=== PATIENT | female | born 1950 | race Caucasian/White ===

== ENCOUNTER → 2017-02-05 | Outpatient (CLI) | payer BC | END | disposition home or self-care (01) | LOC: C.RDSM 15:25 | PROVIDERS: ATTEND Physical Medicine & Rehabilitation Sports Medicine | DX: M17.11 Unilateral primary osteoarthritis, right knee (principal) ==

== ENCOUNTER → 2017-03-12 | Outpatient (CLI) | payer BC ==
[~2017-03-12] MED LIST: ASPI400T11; CHOL100041 PO; VITA1TAB4 PO
== END | disposition home or self-care (01) ==
LOC: C.RDSM 11:04
PROVIDERS: ATTEND Physical Medicine & Rehabilitation Sports Medicine
DX: G56.01 Carpal tunnel syndrome, right upper limb (principal)

== ENCOUNTER → 2017-03-27 | Day surgery (SDC) | payer BC ==
[2017-03-14 08:59] VITALS: Ht 160 cm; Wt 77.3 kg
[~2017-03-27] VITALS: Ht 160 cm; Wt 77.3 kg
[~2017-03-27] MED LIST changes: +ATROPINE SULFATE 0.1 MG/ML 5ML SYR IV PRN; +BUPIVACAINE 0.5 % 5 MG/1 ML PF 10ML VIAL ONE; +CEFAZOLIN 2000MG IV PUSH 10 ML IV SCH; +EpHEDrine SULFATE INJ 50 MG/ML AMP IV PRN; +FENTANYL CITRATE INJ 50 MCG/1 ML 2 ML VIAL IV PRN; +FENTANYL CITRATE INJ 50 MCG/1 ML 2 ML VIAL ONE; +LACTATED RINGER'S 1000ML 1,000 ML IV SCH; +LIDOCAINE HCL 2% 2 ML VIAL (20MG/ML) ONE; +LIDOCAINE HCL 2% LOCAL 20 ML VIAL ONE; +MIDAZOLAM HCL 1 MG/ML 2ML VIAL ONE; +ONDANSETRON INJ 2 MG/ML 2 ML VIAL IV PRN; +PROPOFOL IV EMULSION 10 MG/ML 20 ML VIAL IV ONE; +SODIUM CHLORIDE 0.9% 1000ML 1,000 ML IV SCH
--- NOTE | 2017-03-27 11:08 | History & Physical Bridge Note ---
H&P Re-Evaluation Bridge Note: I have examined the patient, reviewed the History & Physical and in the interval since the performance of the History & Physical I have noted the following changes of clinical significance: consent obtained.No changes noted
--- NOTE | 2017-03-27 11:10 | Discharge Instructions ---
Discharge Instructions Date of Service Mar 27, 2017. Visit Reason for Visit: Right Carpal Tunnel Syndrome Discharge Discharge Diagnosis / Problem: same Discharge Goals Goal(s): Decrease discomfort, Improve function Medications Stopped Medications Name(s): na Restart Stopped Medication(s): use all meds as directed Activity Recommendations Activity Limitations: as noted below Lifting Limitations: until after follow-up appointment Exercise/Sports Limitations: until after follow-up appointment May Resume Sexual Activity: when tolerated Shower/Bathe: keep incision dry Driving or Machine Use: resume 3 days after discharge Anesthesia . Post Anesthesia Instructions: If you have had General Anesthesia or IV Sedation: * Do not drive today. * Resume driving when surgeon permits. * Do not make important decisions or sign legal documents today. * Call surgeon for: 1. Temperature elevations greater than 101 degrees F. 2. Uncontrollable pain. 3. Excessive bleeding. 4. Persistent nausea and vomiting. 5. Medication intolerance (nausea, vomiting or rash). * For nausea and vomiting use only clear liquids such as: tea, soda, bouillon until nausea subsides, then gradually increase diet as tolerated. * If you have any concerns or questions, call your surgeon's office. If physician is unavailable and it is an emergency, call 911 or go to the nearest emergency room. . Instructions / Follow-Up Instructions / Follow-Up The following are instructions to follow after minor hand surgery. ACTIVITY RECOMMENDATIONS: * Minimize activity until your first visit after surgery. * No excessive walking, jogging, sports or laboring. * Return to activity is individualized. Most patients are able to return to everyday activities within 2 weeks. * Return to sports or intensive labor usually occurs at 1-2 months. * DRIVING: Driving may be resumed when you feel you have adequate pain control and use of the hand. * BATHING: You may shower or sponge-bathe immediately after surgery. The dressing will need to be covered with a plastic bag or plastic wrap until the dressing is changed on the fourth or fifth day after surgery. Once the dressing has been changed on the fourth or fifth day after surgery, you may shower and get the incision wet. * Wash with regular soap and water. * Do not bathe (submerge the incision), soak, swim or use a hot tub until the incision is completely healed over with normal skin and the doctor has given the OK to proceed. * There is no need to apply any ointments, powders or salves to your incision. * Do not apply alcohol or hydrogen peroxide directly to the incision. Diluted peroxide (50:50 mixture with sterile saline) may be used to clean dried blood from around the incision area. WORK/SCHOOL: * You may return to sedentary work or school when you are feeling comfortable. This is usually 3-7 days after surgery. * Expect increased discomfort with increased activity. Continue to elevate and ice the hand as much as possible. DIET: * Resume previous diet. MEDICATIONS: * You will have a prescription for pain medication and an anti-inflammatory medication after surgery. Use the pain pills for severe pain and the anti-inflammatory for less severe pain. * Once the pain pills have run out, try to use the anti-inflammatory. If this is not effective then contact the office for assistance. * The pain medication may cause nausea, constipation and sleepiness. You should see how they affect you before driving or similar activity. * The anti-inflammatory may cause stomach upset and bleeding. If this occurs, let your doctor know immediately . * Some patients may need blood clot prevention. This can be done with either a pill or a simple shot. Your doctor will advise you on when to begin these medications and how to take them. * Do not take aspirin or other anti-inflammatory products (i.e. Advil or Aleve ) if taking blood thinner medication. * Take a stool softener like Colace or a stimulant like Senokot to prevent constipation. SPECIAL CARE INSTRUCTIONS: ICE: * Do not apply ice directly to the skin. * Use a thin dressing or stockinet between the skin and ice bag. The dressing in place after surgery will suffice. * Apply ice for 20-30 minutes and repeat every 2-4 hours. This is especially important for the first 3-7 days after surgery. * Once the pain improves, use ice as needed. ELEVATION: * Keep your hand elevated at or above the level of your heart as much as possible. * Expect some increased discomfort and swelling if you allow your hand to hang down for any length of time. DRESSING: * Your dressing will be changed 4-5 days after surgery by the physical therapist or physician's outpatient physical therapist assistant. Leave your dressing intact until this time. * You may then change your dressing daily with clean dry gauze or Band-aids and a soft wrap or stockinet. * Always wash your hands prior to touching the incision area. * Once the stitches are removed, you may leave the wound open to air or cover with a thin bandage. * There is no need to apply any ointments, powders or salves to your incision. * Expect some bloody drainage for the first few days after surgery. * Leave the tape strips in place (if present) for 5-7 days. * The initial dressing after surgery may become soaked with blood or fluid which is normal. You may reinforce your dressing with clean, dry gauze as needed. BRACE: * Bracing is generally not needed after routine hand surgery. THERAPY: * Physical therapy may be prescribed after your surgery. * For carpal tunnel and trigger digit surgery you may begin moving your fingers and wrist immediately after surgery as tolerated. * Be careful to not overuse. * Once the sutures are removed, further range of motion exercises can be performed. * Hand incisions may be very sensitive for a few months after surgery so avoid excessive pressure on the incision. If necessary, use a padded weightlifters' glove. * You may massage the incision with skin cream to make it less sensitive and reduce scarring. * Hand strength usually returns with normal use. * If needed, squeezing a soft sponge or Play-dough may help. * Your doctor will recommend physical therapy if necessary. PROBLEMS/QUESTIONS: * If you have any problems such as severe pain, numbness, tingling or high fevers or if you have any questions, please contact the office at [phone]. * It is not uncommon to have some numbness and tingling after the surgery especially if you have had a nerve block done. This should gradually improve over the first 1- 2 days. If this persists longer or worsens then contact the office. FOLLOW UP VISIT: * If not already scheduled, please call the office at to schedule follow-up appointments for approximately 10 days, 6 weeks and 3 months after surgery. Diet Recommendations Recommended Home Diet: resume previous diet Procedures Procedures Performed: right carpal tunnel Pending Studies Studies pending at discharge: no Medical Emergencies . Who to Call and When: Medical Emergencies: If at any time you feel your situation is an emergency, please call 911 immediately. . Non-Emergent Contact Non-Emergency issues call your: Specialist Call Non-Emergent contact if: temperature is above 101.5, wound has increased drainage, wound has increased redness, wound has increased pain . . "Provider Documentation" section prepared by Maycol Nunez. .
--- NOTE | 2017-03-27 11:44 | [facility] Post Operative Brief Note ---
Immediate Operative Summary Operative Date Mar 27, 2017. Pre-Operative Diagnosis Right Carpal Tunnel Syndrome Post-Operative Diagnosis same Procedure(s) Performed Right Carpal Tunnel Open Release Surgeon Dr Nunez Religion Teacher Surgeon(s) SOWMYA Cavanaugh Estimated Blood Loss trace Findings see op note Fluids (cc crystalloids) see anesthesia report Specimens none Drains none Anesthesia local/sedation Complication(s) None Disposition
[2017-03-27 11:45] VITALS: TEMP 36.5
--- NOTE | 2017-03-27 12:06 | OPERATIVE REPORT ---
DATE OF OPERATION: 03/27/2017 SURGEON: Maycol Nunez MD MEDICAL BILLING CLERK: Rafiq Stephenson PA-C. No resident or fellow available. PREOPERATIVE DIAGNOSIS: Right carpal tunnel syndrome. POSTOPERATIVE DIAGNOSIS: Same. OPERATION PERFORMED: Right carpal tunnel release. PERIOPERATIVE SITUATION: Medically cleared female with intractable numbness and tingling in the median nerve distribution of her hand. Physical exam, x-ray and EMG confirms diagnosis. OPERATION: The patient appropriately identified, site verified, consent verified, 2 grams of Ancef confirmed as being given. The right upper extremity was blocked with 4 mL of 0.5% plain Marcaine and 4 mL of 2% plain lidocaine in the upper extremity prepped and draped in usual routine fashion. Tourniquet inflated to 250 mmHg after exsanguination of limb with a rubber Esmarch bandage for a tourniquet time about 15 minutes. Curvilinear incision made based on the fourth ray. A sharp dissection carried through the palmar fascia. This was then incised under direct vision. The transverse carpal ligament and the antebrachial fascia identified and then incised for approximately 0.5 cm proximal hook of the hamate to the superficial palmar arch. Floor of the carpal canal had no masses. The nerve was quite constricted, had almost like an hourglass shape and then became hyperemic. The FPL was identified and no issues there and the motor takeoff branch was identified, but not explored. The wound was then irrigated and closed with horizontal 4-0 nylon mattress sutures. Appropriate dressing and splint applied. The patient was then transferred to the holding area in satisfactory condition having tolerated the procedure well. ESTIMATED BLOOD LOSS: Trace. CRYSTALLOID: Per anesthesia report. I attest to the content of the Intraoperative Record and any orders documented therein. Any exception s are noted below.
[2017-03-27 12:18] VITALS: BP 131/84; PULSE 64; O2SAT 96
--- NOTE | 2017-03-27 12:23 | Anesthesia Progress Nt - [facility] ---
Anesthesia Post Op Note Date & Time Mar 27, 2017 at 12:23 Vital Signs Pain Intensity: 0 Vital Signs Past 12 Hours Date Time Temp Pulse Resp B/P (MAP) Pulse Ox O2 Delivery O2 Flow Rate FiO2 03/27/17 12:18 64 18 131/84 (100) 96 Room Air 03/27/17 11:45 36.5 71 20 145/62 (89) 97 Room Air 03/27/17 09:55 36.9 70 22 149/112 (124) 98 Room Air 166/102 (123) Notes Mental Status: alert / awake / arousable, participated in evaluation Pt Amnestic to Procedure: Yes Nausea / Vomiting: adequately controlled Pain: adequately controlled Airway Patency, RR, SpO2: stable & adequate BP & HR: stable & adequate Hydration State: stable & adequate Anesthetic Complications: no major complications apparent
--- NOTE | 2017-03-27 15:18 | [facility] Operative Report ---
Operative Report Operative Date Mar 27, 2017. Pre-Operative Diagnosis Right Carpal Tunnel Syndrome Post-Operative Diagnosis same Procedure(s) Performed Right Carpal Tunnel Open Release Surgeon Dr Nunez Enzyme Chemist Surgeon(s) SOWMYA Cavanaugh Estimated Blood Loss trace Findings Right wrist median nerve entrapment Fluids (cc crystalloids) see anesthesia report Specimens none Drains none Complication(s) None Disposition phase 2 recovery Indications This 66-year-old white female presented to the office with complaints of right hand tingling. She had tried conservative care measures without success. She elected to proceed with surgical intervention after being educated about potential risks and outcomes. Preoperative EMG was obtained. Description of Procedure Patient was taken to the operating room where she was given local anesthetic and sedation. She was prepped and draped in usual sterile fashion. Please see Dr. Nunez's operative report for specifics of the procedure. I was present for the entire case from initial patient positioning through final wound closure. Assistance was provided in tissue traction, hemostasis, final wound closure and splint application. Patient was taken to phase 2 recovery in satisfactory condition. I attest to the content of the Intraoperative Record and any orders documented therein. Any exceptions are noted below.
== END | disposition home or self-care (01) ==
LOC: X.SURG 09:33
PROVIDERS: ATTEND Physical Medicine & Rehabilitation Sports Medicine
DX: G56.01 Carpal tunnel syndrome, right upper limb (principal); Z90.89 Acquired absence of other organs; M19.90 Unspecified osteoarthritis, unspecified site

== ENCOUNTER 2020-11-10 05:08 | Observation (INO) ==
--- NOTE | 2020-10-29 11:41 | PAT Medication Instructions ---
Medication Instructions Date of Service October 29, 2020 Home Medications Natural Calm 1 dose PO BID cholecalciferol (vitamin D3) [Vitamin D3] 50 mcg PO QAM clobetasol 1 applic TOPICAL DAILY PRN desonide 1 applic TOPICAL BID PRN vitamin E 400 unit PO QAM STOP taking 2 weeks before surgery (or as soon as possible if surgery is within 2 weeks) Natural Calm 1 dose PO BID vitamin E 400 unit PO QAM STOP taking 24 hours before surgery clobetasol 1 applic TOPICAL DAILY PRN desonide 1 applic TOPICAL BID PRN DO NOT take the morning of surgery cholecalciferol (vitamin D3) [Vitamin D3] 50 mcg PO QAM Other Notes If you have any questions please call us at [phone] or [phone] or [phone] or [phone]
--- NOTE | 2020-11-02 13:48 | Anesthesiology Consultation ---
Date of Service November 02, 2020 Assessment & Plan (1) Encounter for pre-operative examination: Chart Review Chart Review: Acceptable Risk for Surgery (pending surgeon ordered PCP clearance and preop Covid testing results ) and Patient seen in Pre Admission Testing Awaiting surgeon ordered PCP clearance scheduled 11/04/20 Pt hesitant re: spinal since hx of headaches in the past- educated patient on both SAB and GA- pt will discuss with anesthesiologist DOS Per PAT appt on 11/02/20, pt denies any travel or large group activities. Pt is NOT vaccinated for Covid. No known Covid positive contacts or Covid related symptoms. Pt only wears mask when required. Preop Covid testing scheduled 11/08/20= will await results. Educated on importance of self quarantining, social distancing and wearing mask in public both for the patient after Covid testing done History Surgery Operation Date: 11/10/20 07:00 Proposed Procedures p Left Total Knee Arthroplasty - Maycol Nunez MD Height/Weight Height: 5 ft 2 in Weight: 79.6 kg Allergies Allergy/AdvReac Type Severity Reaction Status Date / Time No Known Allergies Allergy Unverified 10/29/20 10:53 Medications Home Medications Medication Instructions Recorded Confirmed Last Taken Natural Calm 1 dose PO BID 10/29/20 10/29/20 Unknown cholecalciferol (vitamin D3) 50 mcg PO QAM 10/29/20 10/29/20 Unknown [Vitamin D3] clobetasol 1 applic TOPICAL DAILY PRN 10/29/20 10/29/20 Unknown desonide 1 applic TOPICAL BID PRN 10/29/20 10/29/20 Unknown vitamin E 400 unit PO QAM 10/29/20 10/29/20 Unknown Past Medical History Medical History Arthritis Heartburn Well controlled and stable - diet dependent History of stomach ulcers No recent issues Hx of migraines Stable Hyperlipidemia "BORDERLINE" NO MEDS Exercise / Class Metabolic Activity II 4-5 Yardwork/Stairs/Walk up hill (one flight of stairs - no chest pain or SOB ) Past Family History Family History Sister Family history of diabetes mellitus Other No family history of adverse response to anesthesia Past Surgical History Surgical History History of appendectomy History of carpal tunnel release History of colonoscopy History of esophagogastroduodenoscopy (EGD) History of hysterectomy Nausea and vomiting after administration of anesthetic agent Past Anesthesia History No Hx of Anesthesia Complications (with exception to PONV with hysterectomy ) and No Family Hx of Anesthesia Complications History of PONV No Hx of Motion Sickness and History of PONV (only with hysterectomy ) Social History Smoking Status: Never smoker Hx Alcohol Use: Yes Alcohol type: wine alcohol intake frequency: holidays/special occasions only Hx Substance Use: No Review of Systems Patient denies chest pain, shortness of breath, dyspnea on exertion, cough, wheezing, palpitations. No hx of seizures, stroke, AK, apnea/snoring. No hx of blood clots or blood transfusions Physical Exam Vital Signs VITALS BP 135/78 P 76 TEMP 98.8 SP02 97% RESP 16 Constitutional no acute distress ENMT Mouth: no TMJ clicking Thyromental Distance: < 3.5 Finger Breadths (2.5) Mallampati Class: III Denies loose or missing teeth Neck neck extension not limited Respiratory normal respiratory effort; no respiratory distress Auscultation: lungs clear to auscultation bilaterally; no wheezes Cardiovascular Rate/Rhythm: regular rate and regular rhythm Heart Sounds: no murmur Vessels: no carotid bruit Musculoskeletal Spine: no pain with cervical ROM Extremities: extremities normal to inspection Psychiatric Orientation: alert Lab Results Anesthesia Preop Results Results Anesthesia Widget: WBC 5.16 K/uL (4.8-10.8) 11/02/20 Hgb 14.5 g/dL (12.0-16.0) 11/02/20 Hct 43.5 % (37-47) 11/02/20 Plt 285 K/uL (130-400) 11/02/20 Na 140 mmol/L (136-145) 11/02/20 K 3.7 mmol/L (3.5-5.1) 11/02/20 Cl 107 mmol/L (98-107) 11/02/20 CO2 27 mmol/L (21-32) 11/02/20 BUN 13 mg/dl (7-18) 11/02/20 Creat 0.59 mg/dl (0.6-1.2) L 11/02/20 Glucose Level 88 mg/dl (70-99) 11/02/20 PT 9.8 Seconds (9.0-12.0) 11/02/20 PTT 23.2 Seconds (21.0-31.0) 11/02/20 INR 1.0 (0.9-1.1) 11/02/20 Urine Color Yellow 11/02/20 Urine Appearance Clear (Clear) 11/02/20 Urine pH 8.0 (4.5-7.5) H 11/02/20 Urine Specific [place] 1.012 (1.000-1.030) 11/02/20 Urine Protein Negative (Negative) 11/02/20 Urine Glucose (UA) Negative (Negative) 11/02/20 Urine Ketones Negative (Negative) 11/02/20 Urine Blood Negative (Negative) 11/02/20 Urine Nitrite Negative (Negative) 11/02/20 Urine Bilirubin Negative (Negative) 11/02/20 Urine Urobilinogen Negative (Negative) 11/02/20 Urine Leukocyte Esterase Negative (Negative) 11/02/20 Blood Type A Positive 11/02/20 Antibody Screen NEGATIVE 11/02/20 Testing Electrocardiogram Date: 11/02/20 Sinus rhythm with first-degree AV block at 71 bpm. Otherwise normal EKG per cardio. Chest X-Ray Date: 11/02/20 Findings: + NAD
--- NOTE | 2020-11-02 17:08 | History & Physical Report ---
Date of Service November 02, 2020 Assessment & Plan (1) Left knee DJD: Postoperative prescriptions for Percocet and Coumadin will be provided at discharge from the hospital. Anticipate discharge to home with home health services. The patient already has access to a cane and walker. PDMP was c hecked and there are no concerning findings. She is aware of the COVID-19 risks associated with surgery. She is currently asymptomatic of any COVID-19 symptoms. She will obtain nasal swab testing 48 hours prior to surgery. Postop followup appointment has been made for 11/25 at 1:00 p.m. The patient is seeing her PCP for medical clearance this week. History of Present Illness Chief Complaint: Left knee pain Primary Care Provider: Darryn Tadeo DO This 70-year-old female presents with her , for her preoperative history and physical. She is scheduled to undergo a left knee total knee arthroplasty on 11/10/2020. The patient has had a multiple year history of right knee pain. Ongoing since at least 2013. Pain has become worse with time. She did try activity modification as well as viscosupplementation injections. The injection s used to work, but have not provided relief over the last year. She denies any catching or locking. No buckling. Pain is worse with weightbearing. It is affecting her ADLs. No numbness or tingling. Preoperative imaging has been obtained. Allergies Allergy/AdvReac Type Severity Reaction Status Date / Time No Known Allergies Allergy Unverified 10/29/20 10:53 Home Medications Medication Instructions Recorded Confirmed Type Natural Calm 1 dose PO BID 10/29/20 10/29/20 History cholecalciferol (vitamin D3) 50 mcg PO QAM 10/29/20 10/29/20 History [Vitamin D3] clobetasol 1 applic TOPICAL DAILY PRN 10/29/20 10/29/20 History desonide 1 applic TOPICAL BID PRN 10/29/20 10/29/20 History vitamin E 400 unit PO QAM 10/29/20 10/29/20 History Past Med/Surg History Medical History (Updated 11/02/20 @ 17:07 by Rafiq Stephenson PA-C) Arthritis Heartburn Well controlled and stable - diet dependent History of stomach ulcers No recent issues Hx of migraines Stable Hyperlipidemia "BORDERLINE" NO MEDS Surgical History (Updated 11/02/20 @ 17:04 by Rafiq Stephenson PA-C) History of appendectomy History of carpal tunnel release History of colonoscopy History of esophagogastroduodenoscopy (EGD) History of hysterectomy Nausea and vomiting after administration of anesthetic agent Family History Sister Family history of diabetes mellitus Other No family history of adverse response to anesthesia Social History (Updated 11/02/20 @ 17:05 by Rafiq Stephenson PA-C) Smoking Status: Never smoker Second Hand Exposure: No; Hx Alcohol Use: Yes Alcohol type: wine Hx Substance Use: No Preferred Language: [place]kin[place] Hearing Ability: Normal Wedding Transportation Driver Required: No Beliefs That Will Affect Care: None marital status: Current Living Situation: Spouse current occupational status: retired Feels Safe at Home: Yes Assistive Devices: Cane and Glasses Review of Systems Review of Systems: All systems reviewed & are unremarkable except as noted in HPI & below A total of 10 systems were reviewed. Physical Exam Physical Exam: Vitals: Height 157 cm, weight 79.8 kilograms, BMI 32.4, temperature 36.6, BP 122/84, pulse 89, O2 sat 98% on room air. General: Well- developed, well-nourished, elderly white female in no acute distress. Sitting on a chair. Alert and oriented. Skin: Warm and dry with fair turgor. No rashes or lesions. No ecchymosis or erythema. No intraarticular effusion. HEENT: Normocephalic, atraumatic. Eyes: PERRLA, EOMI. Nares and oropharynx exams deferred due to COVID precautions. Heart: RRR, no MGR. Lungs: Clear to auscultation bilaterally, no crackles, rhonchi or wheezing, good air movement. Abdomen: Mildly obese, bowel sounds present x4, soft, nontender. No organomegaly. No masses. Musculoskeletal: Left knee evaluation reveals no intraarticular effusion. She has full terminal extension. Flexion to greater than 100 degrees. Strength is 5/5 with fair quad tone. She has focal discomfort with palpation over the medial and lateral joint lines with medial being worst. No defect in the patellar tendon or quadriceps tendon. Stable collateral ligaments. Ambulating today with a slightly antalgic gait. There is crepitus with motion. Varus alignment. Neurologic: Gross sensation is intact across both lower extremities by soft touch. Peripheral pulses are 2+. Results & Data Results & Data ([facility]) Diagnostic Findings Radiographic imaging previously obtained was reviewed. The patient has tricompartmental osteoarthritis, worst in the medial compartment. Periarticular osteophytes and subchondral sclerosis are present. Right knee films actually appear worse than the left, but her worst pain is on the left.
[2020-11-10] MEDS ORDERED: LR 500ML BOLUS, THEN 15ML/HR IV SCH (06:00)
[2020-11-10] MEDS ORDERED: LR 60ML/HR IV SCH (06:00)
[2020-11-10] MEDS ORDERED: TRANEXAMIC ACID / 0.7% NACL 1,000 MG/100 ML BAG IV SCH ×2 (06:00→14:37)
[2020-11-10] MEDS ORDERED: ROPIVACAINE 0.5% HCL/PF 150 MG, BUPIVACAINE 0.75% MPF 20 ML, EPINEPHrine 0.15 MG, Ketor... INFIL SCH (06:00)
[2020-11-10] MEDS ORDERED: ceFAZolin 2000MG 2,000 MG/15 ML SYR IV SCH (06:00)
--- NOTE | 2020-11-10 06:19 | History & Physical Bridge Note ---
Date of Service November 10, 2020 History & Physical Bridge Note I have examined the patient, reviewed the History & Physical and in the interval since the performance of the History & Physical I have noted the following changes of clinical significance: consent obtained/site verified/covid screeen negative.no changes noted
[2020-11-10] MEDS ORDERED: ROPIVACAINE 0.5% 5 MG/ML 30 ML VIAL ONE (06:22)
[2020-11-10] MEDS ORDERED: BUPIVACAINE 0.5 % 5 MG/1 ML PF 10ML VIAL ONE (06:22)
[2020-11-10] MEDS ORDERED: EPINEPHrine INJ 1 MG/ML AMP ONE (06:22)
[2020-11-10] MEDS ORDERED: MIDAZOLAM HCL 1 MG/ML 2ML VIAL ONE ×2 (06:32→07:22)
[2020-11-10] MEDS ORDERED: fentaNYL citrate 100 MCG/2 ML VIAL ONE (06:32)
[2020-11-10] MEDS ORDERED: ORTHO JOINT ANESTHETIC ONE (06:34)
[2020-11-10] MEDS ORDERED: ONDANSETRON INJ 2 MG/ML 2 ML VIAL ONE (07:23)
[2020-11-10] MEDS ORDERED: PROPOFOL IV EMULSION 10 MG/ML 20 ML VIAL IV ONE (07:23)
--- NOTE | 2020-11-10 08:21 | Post Operative Brief Note ---
Immediate Post Op Note v1 Date of Surgery November 10, 2020 Pre & Post Diagnosis Operation Date: 11/10/20 07:00 Pre-Op Diagnosis: Left Knee Degenerative Joint Disease Post-Op Diagnosis: Left Knee Degenerative Joint Disease I identified the patient and participated in the time-out.: Yes Procedure Operation Date: 11/10/20 07:00 Actual Procedures p Left Total Knee Arthroplasty(Left) - Maycol Nunez MD Surgeon Maycol Nunez MD [employer]house [employer] [facility] Estimated Blood Loss 25 Findings Consistent with Post-Op Diagnosis
[2020-11-10] MEDS ORDERED: ATROPINE SULFATE 0.1 MG/ML 10ML SYR IV PRN (08:31)
[2020-11-10] MEDS ORDERED: ePHEDrine sulfate 50 MG/ML AMP IV PRN (08:31)
--- NOTE | 2020-11-10 08:34 | Operative Report ---
Post Operative Report Pre & Post Diagnosis Operation Date: 11/10/20 07:00 Pre-Op Diagnosis: Left Knee Degenerative Joint Disease Post-Op Diagnosis: Left Knee Degenerative Joint Disease I identified the patient and participated in the time-out.: Yes Procedure Operation Date: 11/10/20 07:00 Actual Procedures p Left Total Knee Arthroplasty(Left) - Maycol Nunez MD Surgeon Maycol Nunez MD Clinical Project Assistant STEPHY Carter Estimated Blood Loss 25 Findings Consistent with Post-Op Diagnosis Specimens Bone and soft tissue Drains None Anesthesia Type Spinal MAC Complications none Disposition Accompanied Patient To Recovery: Yes Disposition: Recovery Room Description of Procedure Patient was taken to the operating room and placed under IV sedation with spinal anesthesia. She was also given a peripheral nerve block preoperatively. She was given 2 g of IV Ancef for surgical prophylaxis. Time out was performed. She was prepped and draped in routine sterile fashion. I was present during the entire case and assisted with positioning, tissue retraction, implantation of hardware, closure and dressings. Please see Dr. Nunez's operative report for further detail. Patient was awakened and transferred to the recovery room in stable condition. I attest to the content of the Intraoperative Record and any orders documented therein. Any exceptions are noted below.
--- NOTE | 2020-11-10 08:59 | Operative Report (OR) ---
DATE OF PROCEDURE: 11/10/2020 SURGEON: Maycol Nunez MD SOAP MAKER: Kristina Carter PA-C. No resident or fellow available. PREOPERATIVE DIAGNOSIS: Osteoarthritis with flexion varus deformity, left knee. POSTOPERATIVE DIAGNOSIS: Osteoarthritis with flexion varus deformity, left knee. OPERATION PERFORMED: Cemented left total knee replacement. SUMMARY OF IMPLANTS: Size 2.5 left femur posterior cruciate substituting size 2.5 mobile bearing tra y, size 2.5 x 10 PCL stabilizing insert, oval dome 3 peg patella size 35, two bags of [employer] t. ESTIMATED BLOOD LOSS: 25 mL PATHOLOGY: Pending on bone. DEEP VENOUS THROMBOSIS PROPHYLAXIS: Per protocol. FLUIDS: Per anesthesia. PERIOPERATIVE SITUATION: Medically cleared female with intractable knee pain, has failed conservativ e management over multiple years. At this point in time, wants to proceed with surgical treatment. She understands the risks and consequences of total knee arthroplasty. DESCRIPTION OF PROCEDURE: The patient was appropriately identified, site verified, consent verified. Antibiotics were confirmed as being given. The left lower extremity was prepped and draped in usua l routine fashion. Tourniquet was inflated to 300 mmHg after exsanguination of limb with a rubber Es march bandage for a total of 45 minutes. Midline exposure utilized. Parapatellar arthrotomy perform ed. Synovectomy completed, osteophytes resected. Medial release performed appropriately. Distal fe mur then resected 14 mm, proximal tibia 4 mm. The extension gap was excellent. Femur was sized to 2 .5. Appropriate cutting block applied and the anterior, posterior condylar and chamfer cuts were mad e. The flexion gap was checked. It was a little tight laterally. It was released a little bit and then was excellent. A box cut was then made and a size 2.5 fit well. Tibia was then subluxated, then broached and reamed to a size 2.5 with a 2.5 spacer, 10 mm thick. It gave excellent mid range and full extension and full flexion stability. The patella tracked well. The patella was everted. Minor synovectomy completed and then the patella resected leaving 16 mm and then a 35 button, template drilled in position and trial button seated well. Ortho mix was then inj ected all about the knee including posterior capsule. Trial implants were removed, wound irrigated a nd then the permanent cemented into position tibia, femur, and patella. After 12 minutes, the tourni quet deflated. Minor bleeding points controlled with electrocautery. After 14 minutes, the knee was then resubluxated. The trial removed, the wound irrigated with Betadine and Pulsavac, and then the permanent liner seated. Knee reduced and closed at 40 degrees of flexion with #2 Vicryl, 2-0 Vicryl, and stainless steel clips. Appropriate dressing applied. The patient was transferred to [facility] in satisfactory condition having tolerated the procedure well. contacted and everybody i nformed that the patient was doing well so far. X-ray is pending. Job ID: [id number]
--- NOTE | 2020-11-10 09:08 | Anesthesiology Progress Note ---
Date of Service November 10, 2020 Anesthesia Post Procedure Vital Signs Vital Signs: Temp Pulse Pulse Resp BP Pulse Ox 11/10/20 09:05 37 C 64 16 121/73 98 11/10/20 08:55 64 17 113/68 97 11/10/20 08:45 66 18 104/63 97 11/10/20 08:35 67 19 101/61 98 11/10/20 08:29 36.5 C 71 12 103/57 L 96 11/10/20 05:46 36.8 C 91 H 10 L 166/93 H 96 Transfer of Care Handoff Completed per policy Notes Mental Status: alert / awake / arousable Patient Amnestic to Procedure: Yes Nausea / Vomiting: adequately controlled Pain: adequately controlled Airway Patency, RR, SpO2: stable & adequate BP & HR: stable & adequate Hydration State: stable & adequate Neuraxial Anesthesia: was administered and sensory block is resolving Anesthetic Complications: no major complications apparent
--- NOTE | 2020-11-10 09:09 | XRay Report ---
TWO VIEWS LEFT KNEE CLINICAL HISTORY: Postoperative examination. FINDINGS: AP and crosstable lateral portable views of the left knee are obtained. A left knee arthrop lasty is in near anatomic alignment. There has been undersurface remodeling of the patella. No acute fracture is seen. There are expected postoperative changes around the knee including skin clips, soft tissue edema, and subcutaneous gas. IMPRESSION: Expected postoperative changes status post left knee arthroplasty. No acute fracture is s een. ACT 112: Negative or not required by law. Electronically signed by: Sridhar Mcclelland M.D. 11/10/2020 9:08 AM
--- NOTE | 2020-11-10 10:33 | Progress Notes ---
SUBJECTIVE: Postop check status post left total knee replacement. The patient is sitting up in bed, comfortable. Denies any chest pain, shortness of breath, fever, chills, nausea, vomiting or headach e. OBJECTIVE: VITAL SIGNS: Stable. She is afebrile. Neurovascular check of femoral sciatic nerve is returning well from the spinal. She can dorsiflex her toes and her ankle, set her quad. X-rays postop look excellent. ASSESSMENT: Doing well. Continue postoperative care pathway. PLAN: For early discharge tomorrow. Job ID: [id number]
--- NOTE | 2020-11-10 10:38 | Discharge Summary (DS) ---
DATE OF DISCHARGE: 11/11/2020. CHIEF COMPLAINT: Left knee pain. HISTORY OF PRESENT ILLNESS AND HOSPITAL COURSE: Underwent elective left total knee replacement. Hos pital course to date has been uneventful. Postop x-rays have been excellent. MEDICATION LIST: Includes vitamins, clobetasol. ALLERGIES: None. PAST MEDICAL HISTORY AND PAST SURGICAL HISTORY: Remarkable for heartburn, history of gastric ulcers, migraines, hyperlipidemia, appendectomy, carpal tunnel release, colonoscopies, hysterectomy. FAMILY HISTORY: Reveals no issues recently. Family history of diabetes. No history of adverse resp onse to anesthesia. SOCIAL HISTORY: Reveals no smoking. No major alcohol use. She is and lives with spouse. REVIEW OF SYSTEMS: Noncontributory. ASSESSMENT: Doing well status post left total knee replacement. PLAN: For discharge tomorrow. Case management involved. Job ID: [id number]
[2020-11-10] MEDS ORDERED: bisacodyL 10 MG SUPP PR PRN (11:22)
[2020-11-10] MEDS ORDERED: METOCLOPRAMIDE HCL INJ 5 MG/ML 2 ML VIAL IV PRN (11:22)
[2020-11-10] MEDS ORDERED: oxyCODONE HCL IR 5 MG TAB (IMMEDIATE RELEASE) PO PRN (11:22)
[2020-11-10] MEDS ORDERED: SODIUM CHLORIDE 0.9% 1000ML 1,000 ML IV SCH (11:22)
[2020-11-10] MEDS ORDERED: ONDANSETRON INJ 2 MG/ML 2 ML VIAL IV PRN (11:22)
[2020-11-10] MEDS ORDERED: HYDROmorphone INJ 0.5 MG/0.5 ML SYR IV PRN (11:22)
[2020-11-10] MEDS ORDERED: HYDROmorphone INJ 1 MG/ML SYRINGE IV PRN (11:22)
[2020-11-10] MEDS ORDERED: NALOXONE HCL 0.4 MG/1 ML VIAL/CARP IV PRN (11:22)
[2020-11-10] MEDS ORDERED: MAGNESIUM HYDROXIDE SUSP 30 ML UDC PO PRN (11:22)
[2020-11-10] MEDS: KETOROLAC TROMETHAMINE 15 MG/ML VIAL IV SCH ×2 (12:05→17:12)
[2020-11-10] MEDS: CHOLECALCIFEROL 1,000 UNITS 25 MCG TAB PO SCH (12:05)
[2020-11-10] MEDS: MULTIVITAMIN TAB PO SCH (12:05)
[2020-11-10] MEDS: DOCUSATE SODIUM 100 MG CAP PO SCH ×2 (12:05→21:06)
[2020-11-10] MEDS: ceFAZolin 2000MG 2,000 MG/15 ML SYR IV SCH ×2 (14:59→21:08)
[2020-11-10] MEDS: ACETAMINOPHEN 500 MG TAB PO SCH ×2 (14:59→21:05)
[2020-11-10] MEDS: WARFARIN SOD 5 MG TAB PO SCH (17:11)
[2020-11-10] MEDS ORDERED: SENNA 8.6 MG TAB PO SCH (21:00)
[2020-11-11] MEDS: KETOROLAC TROMETHAMINE 15 MG/ML VIAL IV SCH ×2 (00:05→05:08)
[2020-11-11] MEDS: ACETAMINOPHEN 500 MG TAB PO SCH (05:08)
--- NOTE | 2020-11-11 06:16 | Progress Notes ---
DATE: 11/11/2020. SUBJECTIVE: Postoperative day #1, status post left total knee replacement. The patient did well ove rnight. Denies chest pain, shortness of breath, fever, chills, nausea, vomiting or headache. OBJECTIVE: VITAL SIGNS: Stable. She is afebrile. EXTREMITIES: Wound dressing is clean, dry and intact. Neurovascular check femoral sciatic nerve is normal. Can do a straight leg raise with some resistance. Calves nontender. LABORATORY DATA: A.m. labs are pending. ASSESSMENT: Doing well. PLAN: Discharge to home today after PT/OT. Await a.m. labs. Coumadin dose per a.m. results. Job ID: [id number]
[2020-11-11 06:51] LABS: Hematocrit (blood only) 35.9 % (37-47); Hemoglobin 11.8 g/dL (12.0-16.0); Mean Corpuscular Hemoglobin 28.9 pg (25-34); Mean Corpuscular Hgb Conc 32.9 g/dL (32-36); Mean Platelet Volume 9.8 fL (7.4-10.4); Platelet Count 235 K/uL (130-400); RDW Coefficient of Variation 13.4 % (11.5-14.5); RDW Standard Deviation 43.4 fL (36.4-46.3); Red Blood Count 4.08 M/uL (4.2-5.4); White Blood Count 7.93 K/uL (4.8-10.8)
[2020-11-11 07:04] LABS: INR 1.1 (0.9-1.1); Prothrombin Time 10.7 Seconds (9.0-12.0)
[2020-11-11 07:24] LABS: BUN Creatinine Ratio 26.4 (10-20); Calcium 8.7 mg/dl (8.5-10.1); Creatinine Clr Calc Pharmacy 77.6 ml/min; Est GFR (African American) 103.7 ml/min; Est GFR (Non-African American) 89.4 ml/min
[2020-11-11] MEDS ORDERED: dexAMETHasone 4 MG TAB PO SCH (08:00)
[2020-11-11] MEDS: CHOLECALCIFEROL 1,000 UNITS 25 MCG TAB PO SCH (08:33)
[2020-11-11] MEDS: MULTIVITAMIN TAB PO SCH (08:33)
[2020-11-11] MEDS: DOCUSATE SODIUM 100 MG CAP PO SCH (08:33)
[2020-11-11] MEDS: WARFARIN SOD 5 MG TAB PO SCH (09:59)
== END 2020-11-11 12:01 | disposition home or self-care (01) ==
LOC: PACUINP 05:08 → ASU 05:08 → 3N 11:11